=== PATIENT | male | born 2000 | race Caucasian/White ===

== ENCOUNTER 2019-01-12 13:08 | Inpatient (IN) | payer MEDICAID, OTHER ==
[~2019-01-12] VITALS: Ht 180.3 cm; Wt 68.6 kg
[2019-01-12 14:08] LABS: BASOPHILS % (AUTO) 0.7 % (0.0-2.0); EOSINOPHILS % (AUTO) 1.9 % (1.0-6.0); LYMPHOCYTES # (AUTO) 1.1 K/uL (1.0-4.8); LYMPHOCYTES % (AUTO) 27.6 % (22.0-44.0); MEAN CORPUSCULAR HGB CONC 34.1 G/dL (31.0-37.0); MEAN CORPUSCULAR VOLUME 91 fL (80-100); MONOCYTES # (AUTO) 0.4 K/uL (0.1-1.0); MONOCYTES % (AUTO) 10.8 % (2.0-9.0); NEUTROPHILS # (AUTO) 2.4 K/uL (1.8-7.7); PLATELET COUNT (AUTO) 197 K/uL (150-450); RED BLOOD CELL COUNT(AUTO) 4.51 MIL/uL (4.50-5.90); RED CELL DISTRIBUTION WIDTH 12.9 % (11.5-14.5)
[2019-01-12 14:27] LABS: ANION GAP 4 mmol/L (8-16); CALCIUM, TOTAL 9.4 mg/dL (8.8-10.5); CARBON DIOXIDE 34 mmol/L (22-29); CHLORIDE 104 mmol/L (98-107); CREATININE 0.83 mg/dL (0.60-1.30); GLOMERULAR FILTR. RATE CALC > 60 mL/min (>60); GLUCOSE,RANDOM 92 mg/dL (70-110); POTASSIUM 4.4 mmol/L (3.5-5.1); SODIUM SERUM 142 mmol/L (136-145); UREA NITROGEN, BLOOD 5 mg/dL (7-18)
[2019-01-12 14:33] LABS: ALANINE AMINOTRANSFERASE 16 U/L (12-78); ALBUMIN 4.2 g/dL (3.4-5.0); ALKALINE PHOSPHATASE 58 U/L (46-116); ASPARTATE AMINOTRANSFERASE 16 U/L (15-37); BILIRUBIN,TOTAL 0.6 mg/dL (0.1-1.0); TOTAL PROTEIN, SERUM 7.5 g/dL (6.4-8.2)
[2019-01-12 16:40] LABS: AMPHET/METH SCREEN,URINE NEGATIVE (NEGATIVE); BARBITURATE SCREEN, URINE NEGATIVE (NEGATIVE); BENZODIAZEPINES SCREEN,URINE NEGATIVE (NEGATIVE); CANNABINOID SCREEN,URINE NEGATIVE (NEGATIVE); COCAINE SCREEN,URINE NEGATIVE (NEGATIVE); METHADONE SCREEN, URINE NEGATIVE (NEGATIVE); OPIATE SCREEN,URINE NEGATIVE (NEGATIVE); PHENCYCLIDINE SCREEN,URINE NEGATIVE (NEGATIVE)
[2019-01-12] MEDS ORDERED: HALOPERIDOL 5 MG TABLET PO PRN (16:45)
[2019-01-12] MEDS ORDERED: LORazepam 2 MG TABLET PO PRN (16:45)
[2019-01-12] MEDS ORDERED: ZOLPIDEM TARTRATE 10 MG TABLET PO PRN (16:45)
[2019-01-12 21:45] VITALS: BP 122/78
[2019-01-12] MEDS ORDERED: LOPERAMIDE HCL 2 MG CAPSULE PO PRN (23:45)
[2019-01-12] MEDS ORDERED: ALBUTEROL SULFATE HFA 90 MCG/PUFF 8 GM INHALER IH PRN (23:45)
[2019-01-12] MEDS ORDERED: DOCUSATE SODIUM 100 MG CAPSULE PO PRN (23:45)
[2019-01-12] MEDS ORDERED: ACETAMINOPHEN 325 MG TABLET PO PRN (23:45)
[2019-01-12] MEDS ORDERED: GuaiFENesin/D-METHORPHAN [SUGAR-FREE] 200-20MG/10 ML SYRUP UDCUP PO PRN (23:45)
[2019-01-12] MEDS ORDERED: MAG HYDROX/AL HYDROX/SIMETH ES 30 ML SUSPENSION UDCUP PO PRN (23:45)
[2019-01-12] MEDS ORDERED: CloNIDine HCL 0.1 MG TABLET PO PRN (23:45)
[2019-01-12] MEDS ORDERED: IBUPROFEN 400 MG TABLET PO PRN (23:45)
[2019-01-12] MEDS ORDERED: ONDANSETRON HCL 4 MG TABLET PO PRN (23:45)
[2019-01-12] MEDS ORDERED: MAGNESIUM HYDROXIDE SUSPENSION 30 ML UDCUP PO PRN (23:45)
[2019-01-12] MEDS ORDERED: NICOTINE 14 MG/24 HOUR PATCH TD PRN (23:45)
[2019-01-12] MEDS ORDERED: PETROLATUM,WHITE 28 GM JELLY TP PRN (23:45)
[2019-01-13 06:32] LABS: BASOPHILS % (AUTO) 0.6 % (0.0-2.0); EOSINOPHILS % (AUTO) 1.4 % (1.0-6.0); HEMATOCRIT 39.8 % (41-53); HEMOGLOBIN 13.4 g/dL (13.5-17.5); LYMPHOCYTES # (AUTO) 2.3 K/uL (1.0-4.8); LYMPHOCYTES % (AUTO) 40.7 % (22.0-44.0); MEAN CORPUSCULAR HEMOGLOBIN 30.7 pg (26.0-34.0); MEAN CORPUSCULAR HGB CONC 33.8 G/dL (31.0-37.0); MEAN CORPUSCULAR VOLUME 91 fL (80-100); MONOCYTES # (AUTO) 0.5 K/uL (0.1-1.0); MONOCYTES % (AUTO) 9.4 % (2.0-9.0); NEUTROPHILS # (AUTO) 2.7 K/uL (1.8-7.7); NEUTROPHILS % (AUTO) 47.9 % (40.0-70.0); PLATELET COUNT (AUTO) 190 K/uL (150-450); RED BLOOD CELL COUNT(AUTO) 4.38 MIL/uL (4.50-5.90)
[2019-01-13 06:45] LABS: HEMOGLOBIN A1C 5.3 % (4.5-6.2)
[2019-01-13 07:09] LABS: ALANINE AMINOTRANSFERASE 15 U/L (12-78); ALBUMIN 3.9 g/dL (3.4-5.0); ALKALINE PHOSPHATASE 56 U/L (46-116); ANION GAP 9 mmol/L (8-16); ASPARTATE AMINOTRANSFERASE 13 U/L (15-37); BILIRUBIN,TOTAL 0.8 mg/dL (0.1-1.0); CALCIUM, TOTAL 9.4 mg/dL (8.8-10.5); CARBON DIOXIDE 31 mmol/L (22-29); CHLORIDE 106 mmol/L (98-107); CHOL/HDL RATIO 2.7 (4.2-7.3); CHOLESTEROL 145 mg/dL (131-200); GLOMERULAR FILTR. RATE CALC > 60 mL/min (>60); GLUCOSE,RANDOM 83 mg/dL (70-110); HDL CHOLESTEROL 54 mg/dL (40-60); LDL CHOL (CALC.) 78 mg/dL (0-130); POTASSIUM 4.4 mmol/L (3.5-5.1); SODIUM SERUM 146 mmol/L (136-145); THYROID STIMULATING HORMONE 2.45 uIU/mL (0.36-3.74); TOTAL PROTEIN, SERUM 6.8 g/dL (6.4-8.2); TRIGLYCERIDES 67 mg/dL (15-150); UREA NITROGEN, BLOOD 9 mg/dL (7-18)
[2019-01-13 08:45] VITALS: BP 117/68
[2019-01-13] MEDS: OLANZapine 5 MG RAPDIS TABLET PO SCH ×2 (11:49→17:25)
[2019-01-13 19:01] VITALS: BP 127/77
[2019-01-14 08:11] VITALS: BP 121/76
[2019-01-14] MEDS: OLANZapine 5 MG RAPDIS TABLET PO SCH ×2 (08:22→16:04)
[2019-01-14 17:05] VITALS: BP 111/63
[2019-01-15] MEDS: OLANZapine 5 MG RAPDIS TABLET PO SCH ×2 (08:02→16:49)
[2019-01-15 09:24] VITALS: BP_SYST 117; BP_SYST 73; BP_DIAS 62
[2019-01-15 17:21] VITALS: BP 124/68
[2019-01-16 08:05] VITALS: BP 129/84
[2019-01-16] MEDS: OLANZapine 5 MG RAPDIS TABLET PO SCH ×2 (08:28→16:41)
[2019-01-16 16:00] VITALS: BP 115/79
[2019-01-17 08:48] VITALS: BP 124/82
[2019-01-17] MEDS: OLANZapine 5 MG RAPDIS TABLET PO SCH (08:52)
[2019-01-17 16:00] VITALS: BP 131/77
[2019-01-17] MEDS: OLANZapine 10 MG RAPDIS TABLET PO SCH (17:29)
[2019-01-18] MEDS: OLANZapine 10 MG RAPDIS TABLET PO SCH ×2 (08:22→16:45)
[2019-01-18 11:05] VITALS: BP 128/71
[2019-01-18 19:35] VITALS: BP 134/89
[2019-01-19 08:24] VITALS: BP 139/82
[2019-01-19] MEDS: OLANZapine 10 MG RAPDIS TABLET PO SCH (08:24)
[2019-01-19] MEDS ORDERED: OLAN10TA22 PO (11:11)
== END 2019-01-19 14:15 | disposition home or self-care (01) | DRG 753 ==
LOC: EMS 13:09 → 3EC 17:21
PROVIDERS: ADMIT Psychiatry & Neurology Child & Adolescent Psychiatry; ATTEND Psychiatry & Neurology Child & Adolescent Psychiatry
DX: F31.4 Bipolar disorder, current episode depressed, severe, without psychotic features (principal); E87.0 Hyperosmolality and hypernatremia; R45.851 Suicidal ideations; D64.9 Anemia, unspecified; D72.819 Decreased white blood cell count, unspecified; F90.9 Attention-deficit hyperactivity disorder, unspecified type
CPT/HCPCS: 83036; 84443; G0480

== ENCOUNTER 2021-08-30 14:15 | Inpatient (IN) | payer MEDICAID, OTHER ==
[~2021-08-30] VITALS: Ht 167.6 cm; Wt 76.7 kg
[~2021-08-30 14:15] MED LIST: OLAN10TA22 PO
[2021-08-30 16:44] LABS: BASOPHILS % (AUTO) 0.2 % (0.0-2.0); EOSINOPHILS % (AUTO) 0.2 % (1.0-6.0); HEMATOCRIT 44.8 % (41-53); HEMOGLOBIN 15.5 g/dL (13.5-17.5); LYMPHOCYTES # (AUTO) 0.9 K/uL (1.0-4.8); LYMPHOCYTES % (AUTO) 7.5 % (22.0-44.0); MEAN CORPUSCULAR HEMOGLOBIN 31.3 pg (26.0-34.0); MEAN CORPUSCULAR HGB CONC 34.6 G/dL (31.0-37.0); MEAN CORPUSCULAR VOLUME 90 fL (80-100); MONOCYTES # (AUTO) 0.8 K/uL (0.1-1.0); MONOCYTES % (AUTO) 6.8 % (2.0-9.0); NEUTROPHILS # (AUTO) 10.1 K/uL (1.8-7.7); PLATELET COUNT (AUTO) 224 K/uL (150-450); RED BLOOD CELL COUNT(AUTO) 4.95 MIL/uL (4.50-5.90)
[2021-08-30 16:49] LABS: NEUTROPHILS % (AUTO) 85.3 % (40.0-70.0)
[2021-08-30 17:00] LABS: ANION GAP 8 mmol/L (8-16); CALCIUM, TOTAL 9.5 mg/dL (8.8-10.5); CARBON DIOXIDE 32 mmol/L (22-29); CHLORIDE 102 mmol/L (98-107); CREATININE 1.01 mg/dL (0.60-1.30); GLOMERULAR FILTR. RATE CALC > 60 mL/min (>60); GLUCOSE,RANDOM 95 mg/dL (70-110); POTASSIUM 4.3 mmol/L (3.5-5.1); SODIUM SERUM 142 mmol/L (136-145); UREA NITROGEN, BLOOD 12 mg/dL (7-18)
[2021-08-30 17:05] LABS: ALANINE AMINOTRANSFERASE 31 U/L (12-78); ALBUMIN 4.9 g/dL (3.4-5.0); ALKALINE PHOSPHATASE 64 U/L (46-116); ASPARTATE AMINOTRANSFERASE 21 U/L (15-37); BILIRUBIN,TOTAL 0.6 mg/dL (0.1-1.0); TOTAL PROTEIN, SERUM 8.6 g/dL (6.4-8.2)
[2021-08-30 18:21] LABS: AMPHET/METH SCREEN,URINE NEGATIVE (NEGATIVE); BARBITURATE SCREEN, URINE NEGATIVE (NEGATIVE); BENZODIAZEPINES SCREEN,URINE NEGATIVE (NEGATIVE); CANNABINOID SCREEN,URINE NEGATIVE (NEGATIVE); COCAINE SCREEN,URINE NEGATIVE (NEGATIVE); METHADONE SCREEN, URINE NEGATIVE (NEGATIVE); OPIATE SCREEN,URINE NEGATIVE (NEGATIVE)
[2021-08-30 18:27] LABS: PHENCYCLIDINE SCREEN,URINE NEGATIVE (NEGATIVE)
[2021-08-30] MEDS ORDERED: ZOLPIDEM TARTRATE 10 MG TABLET PO PRN (20:00)
[2021-08-30] MEDS ORDERED: LORazepam 2 MG TABLET PO PRN (20:00)
[2021-08-30] MEDS ORDERED: HALOPERIDOL 5 MG TABLET PO PRN (20:00)
[2021-08-30 21:57] LABS: COVID AG,FIA SOURCE NASOPHARYNGEAL
[2021-08-31 00:40] LABS: CHOL/HDL RATIO 2.7 (4.2-7.3); CHOLESTEROL 167 mg/dL (131-200); HDL CHOLESTEROL 61 mg/dL (40-60); LDL CHOL (CALC.) 86 mg/dL (0-130); TRIGLYCERIDES 100 mg/dL (15-150)
[2021-08-31] MEDS ORDERED: DOCUSATE SODIUM 100 MG CAPSULE PO PRN (13:15)
[2021-08-31] MEDS ORDERED: PETROLATUM,WHITE 28 GM JELLY TP PRN (13:15)
[2021-08-31] MEDS ORDERED: NICOTINE 14 MG/24 HOUR PATCH TD PRN (13:15)
[2021-08-31] MEDS ORDERED: ALBUTEROL SULFATE HFA 90 MCG/PUFF 8 GM INHALER IH PRN (13:15)
[2021-08-31] MEDS ORDERED: LOPERAMIDE HCL 2 MG CAPSULE PO PRN (13:15)
[2021-08-31] MEDS ORDERED: ACETAMINOPHEN 325 MG TABLET PO PRN (13:15)
[2021-08-31] MEDS ORDERED: CloNIDine HCL 0.1 MG TABLET PO PRN (13:15)
[2021-08-31] MEDS ORDERED: IBUPROFEN 400 MG TABLET PO PRN (13:15)
[2021-08-31] MEDS ORDERED: MAG HYDROX/AL HYDROX/SIMETH ES 30 ML SUSPENSION UDCUP PO PRN (13:15)
[2021-08-31] MEDS ORDERED: ONDANSETRON HCL 4 MG TABLET PO PRN (13:15)
[2021-08-31] MEDS ORDERED: GuaiFENesin/D-METHORPHAN [SUGAR-FREE] 200-20MG/10 ML SYRUP UDCUP PO PRN (13:15)
[2021-08-31] MEDS ORDERED: MAGNESIUM HYDROXIDE SUSPENSION 30 ML UDCUP PO PRN (13:15)
[2021-08-31 16:26] VITALS: BP 127/93
[2021-09-01 00:14] VITALS: BP 120/84
[2021-09-01 08:11] VITALS: BP 125/84
[2021-09-01 16:29] VITALS: BP 118/72
[2021-09-02 03:59] VITALS: BP 116/76
[2021-09-02 08:12] VITALS: BP 136/72
== END 2021-09-02 15:30 | disposition home or self-care (01) | DRG 753 ==
LOC: EMS 14:18 → B3A 08-31 11:55
PROVIDERS: ADMIT Psychiatry & Neurology Psychiatry; ATTEND Psychiatry & Neurology Psychiatry
DX: F31.2 Bipolar disorder, current episode manic severe with psychotic features (principal); D72.829 Elevated white blood cell count, unspecified; F90.9 Attention-deficit hyperactivity disorder, unspecified type; G47.00 Insomnia, unspecified; Z20.822 Contact with and (suspected) exposure to COVID-19; R10.13 Epigastric pain; Z86.16 Personal history of COVID-19
CPT/HCPCS: 80053; 80061; 85025; 99285; G0480